=== PATIENT | female | born 1940 | race Caucasian/White ===

== ENCOUNTER 2018-11-04 13:56 | Emergency (ER) | payer MEDICARE, BC ==
[~2018-11-04] VITALS: Ht 162.6 cm; Wt 79.4 kg
== END 2018-11-04 15:31 | disposition home or self-care (01) ==
LOC: ER 13:56
DX: S01.81XA Laceration without foreign body of other part of head, initial encounter (principal); S80.02XA Contusion of left knee, initial encounter; I10 Essential (primary) hypertension; E78.00 Pure hypercholesterolemia, unspecified; Z88.8 Allergy status to other drugs, medicaments and biological substances; Z88.5 Allergy status to narcotic agent; Z91.048 Other nonmedicinal substance allergy status; Z88.6 Allergy status to analgesic agent; W01.0XXA Fall on same level from slipping, tripping and stumbling without subsequent striking against object, initial encounter
CPT/HCPCS: 12011; 73562-LT; 99283-25

== ENCOUNTER 2018-11-10 11:00 | Emergency (ER) | payer MEDICARE, BC ==
[~2018-11-10] VITALS: Ht 162.6 cm; Wt 79.4 kg
[2018-11-10] MEDS ORDERED: METO25ER PO (11:18)
[2018-11-10] MEDS ORDERED: FURO20 PO (11:18)
[2018-11-10] MEDS ORDERED: POTCHL10ER PO (11:18)
[2018-11-10] MEDS ORDERED: LOSA25 PO (11:19)
[2018-11-10] MEDS ORDERED: DOXA1 PO (11:19)
[2018-11-30] MEDS ORDERED: Aspirin EC81 MG PO (15:55)
[2018-11-30] MEDS ORDERED: PROBIOTIC1 EAC1 PO (15:55)
[2018-11-30] MEDS ORDERED: METO100ER PO (15:55)
[2018-11-30] MEDS ORDERED: OMEPRAZOLE MAGN20 MG PO (15:55)
[2018-11-30] MEDS ORDERED: AMLO5 PO (15:56)
[2018-11-30] MEDS ORDERED: LOSARTAN POTAS100 MG PO (15:56)
[2018-11-30] MEDS ORDERED: CRANBERRY250 MG PO (15:56)
[2018-11-30] MEDS ORDERED: ALBU90OI61 INH (15:56)
[2018-11-30] MEDS ORDERED: LIVALO1 MG PO (15:57)
[2018-11-30] MEDS ORDERED: DOXA4 PO (15:57)
== END 2018-11-10 11:20 | disposition home or self-care (01) ==
LOC: ER 11:00
DX: S01.112D Laceration without foreign body of left eyelid and periocular area, subsequent encounter (principal); Z88.1 Allergy status to other antibiotic agents; Z88.8 Allergy status to other drugs, medicaments and biological substances; Z88.5 Allergy status to narcotic agent

== ENCOUNTER 2018-12-06 08:29 | Day surgery (SDC) | payer MEDICARE, BC ==
[~2018-12-06] VITALS: Ht 162.6 cm; Wt 79.6 kg
[~2018-12-06 08:29] MED LIST: ALBU90OI61 INH; AMLO5 PO; Aspirin EC81 MG PO; CRANBERRY250 MG PO; DOXA1 PO; DOXA4 PO; FURO20 PO; LIVALO1 MG PO; LOSA25 PO; LOSARTAN POTAS100 MG PO; METO100ER PO; METO25ER PO; OMEPRAZOLE MAGN20 MG PO; POTCHL10ER PO; PROBIOTIC1 EAC1 PO
--- NOTE | 2018-12-06 09:12 | NUR ---
12/06/18 0912 Rosana Villar FIRST IV ATTEMPT IN RIGHT HAND INFILTRATED. SECOND ATTEMPT IN RIGHT WRIST WAS SUCCESSFUL AND TOLERATED WELL. BOTH BY [email or web address]
== END 2018-12-06 11:01 | disposition home or self-care (01) ==
LOC: ORSCSDS 08:29
PROVIDERS: Internal Medicine Gastroenterology
PROC: 0DBM8ZX Excision of Descending Colon, Via Natural or Artificial Opening Endoscopic, Diagnostic (ICD-10-PCS; principal; 2018-12-06 10:00)
PROC: 0DBN8ZX Excision of Sigmoid Colon, Via Natural or Artificial Opening Endoscopic, Diagnostic (ICD-10-PCS; principal; 2018-12-06 10:00)
PROC: 0DBH8ZX Excision of Cecum, Via Natural or Artificial Opening Endoscopic, Diagnostic (ICD-10-PCS; principal; 2018-12-06 10:00)
PROC: 0DBK8ZX Excision of Ascending Colon, Via Natural or Artificial Opening Endoscopic, Diagnostic (ICD-10-PCS; principal; 2018-12-06 10:00)
DX: Z12.11 Encounter for screening for malignant neoplasm of colon (principal); Z86.010 Personal history of colon polyps; D12.0 Benign neoplasm of cecum; D12.2 Benign neoplasm of ascending colon; D12.4 Benign neoplasm of descending colon; D12.5 Benign neoplasm of sigmoid colon; K57.30 Diverticulosis of large intestine without perforation or abscess without bleeding; I10 Essential (primary) hypertension; J45.909 Unspecified asthma, uncomplicated; Z79.899 Other long term (current) drug therapy; Z79.82 Long term (current) use of aspirin
CPT/HCPCS: 88305; J1980; J7120